=== PATIENT | female | born 2000 | race Caucasian/White ===

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

== ENCOUNTER 2019-12-03 08:28 | Emergency (ER) | payer BC ==
[~2019-12-03] VITALS: Ht 167.6 cm; Wt 88.6 kg
[~2019-12-03 08:28] MED LIST changes: +ZYRTEC 10MG10 MG PO
[2019-12-03 08:35] VITALS: BP 125/79; TEMP 98.1
[2019-12-03 09:40] LABS: COLLECTION METHOD CLEAN CATCH
[2019-12-03 10:01] LABS: MUCOUS Present /lpf; PH 5 (5-8); URINE APPEARANCE Hazy; URINE BACTERIA None Seen /hpf; URINE BILIRUBIN Positive (NEGATIVE); URINE BLOOD Negative (NEGATIVE); URINE COLOR Amber; URINE GLUCOSE Negative (NEGATIVE); URINE KETONE 1+ (NEGATIVE); URINE LEUKOCYTE ESTERASE 1+ (NEGATIVE); URINE NITRATE Negative (NEGATIVE); URINE PROTEIN(semi-quant) 1+ (NEGATIVE); URINE UROBILINOGEN Negative (NEGATIVE)
[2019-12-03 10:12] LABS: BASO % 0.2 % (0.0-2.0); EOS % 0.4 % (0-4.0); GRAN # 6.4 (1.4-6.5); GRAN % 69.6 % (42.2-75.2); HEMATOCRIT 46.6 % (35.0-45.0); HEMOGLOBIN 16.1 g/dl (12.0-15.0); LYMPH # 1.6 (1.2-3.4); LYMPH % 17.2 % (20.0-51.0); MEAN CELL VOLUME 87 fl (80.0-95.0); MEAN CORPUSCULAR HEMOGLOBIN 30 pg (26.0-32.0); MEAN CORPUSCULAR HGB CONC 35 g/dl (33.0-37.0); MONO # 1.2 (0.1-0.6); MONO % 12.5 % (1.7-9.3); PLATELET COUNT 263 K/mm3 (130-400); RED BLOOD COUNT 5.36 M/mm3 (4.10-5.30); REDCELL DISTRIBUTION WIDTH-CV 12.7 % (11.5-14.5)
[2019-12-03 10:14] LABS: ALBUMIN 4.7 gm/dL (3.5-5.0); BILIRUBIN,TOTAL 0.6 mg/dL (0.0-1.0); C-REACTIVE PROTEIN 2.2 mg/dL (0.0-0.9); CALCIUM 9.3 mg/dL (8.4-10.2); CREATININE, serum 0.66 (0.52-1.25); POTASSIUM 3.8 mmol/L (3.4-5.0); TOTAL PROTEIN 8.1 gm/dL (6.4-8.2)
[2019-12-03] MEDS ORDERED: TAMIFLU 75MG75 MG PO (11:35)
[2019-12-03 12:40] VITALS: PULSE 68
== END 2019-12-03 12:40 | disposition home or self-care (01) ==
LOC: COL.ER 08:28
PROVIDERS: Physician Assistant
DX: E86.0 Dehydration (principal); J11.1 Influenza due to unidentified influenza virus with other respiratory manifestations; R55 Syncope and collapse; J45.909 Unspecified asthma, uncomplicated; Z90.89 Acquired absence of other organs; Z90.49 Acquired absence of other specified parts of digestive tract; Z95.9 Presence of cardiac and vascular implant and graft, unspecified; Z87.74 Personal history of (corrected) congenital malformations of heart and circulatory system
CPT/HCPCS: J2405; J7030

== ENCOUNTER 2021-04-21 19:23 | Emergency (ER) | payer BC ==
[~2021-04-21] VITALS: Ht 170.2 cm; Wt 72.7 kg
[~2021-04-21 19:23] MED LIST changes: +FLEXERIL 1010 MG/TAB PO; +NORCO 325 MG-51 TAB PO; +TAMIFLU 75MG75 MG PO; +ZOFRAN ODT4 MG PO
[2021-04-21 20:05] LABS: BASO % 0.3 % (0.0-2.0); EOS # 0.1 (0.0-0.7); EOS % 1.4 % (0-4.0); GRAN # 6.6 (1.4-6.5); GRAN % 68.9 % (42.2-75.2); HEMATOCRIT 41.8 % (37.0-47.0); HEMOGLOBIN 14.3 g/dl (12.5-16.0); LYMPH % 20.8 % (20.0-51.0); MEAN CELL VOLUME 89 fl (80.0-100.0); MEAN CORPUSCULAR HEMOGLOBIN 31 pg (27.0-31.0); MEAN CORPUSCULAR HGB CONC 34 g/dl (33.0-37.0); MEAN PLATELET VOLUME 9.9 fl (7.4-10.4); MONO # 0.8 (0.1-0.6); MONO % 8.3 % (1.7-9.3); PLATELET COUNT 194 K/mm3 (130-400); RED BLOOD COUNT 4.68 M/mm3 (4.10-5.30); REDCELL DISTRIBUTION WIDTH-CV 12.4 % (11.5-14.5)
[2021-04-21 20:15] LABS: ALANINE AMINOTRANSFERASE 30 U/L (4-34); ALBUMIN 4.8 gm/dL (3.5-5.0); ALKALINE PHOSPHATASE 52 U/L (50-136); ANION GAP 10 mmol/L (7-16); AST,SGOT 37 U/L (15-37); BLOOD UREA NITROGEN 12 mg/dL (7-17); CALCIUM 9.2 mg/dL (8.4-10.2); CARBON DIOXIDE 19 mmol/L (22-30); CHLORIDE 109 mmol/L (98-107); CREATININE, serum 0.61 (0.52-1.25); GLUCOSE 96 mg/dL (74-106); LIPASE 50 U/L (23-300); POTASSIUM 3.5 mmol/L (3.4-5.0); SODIUM 139 mmol/L (137-145); TOTAL PROTEIN 8.2 gm/dL (6.4-8.2)
[2021-04-21 20:22] LABS: C-REACTIVE PROTEIN < 0.5 mg/dL (0.0-0.9)
[2021-04-21 20:32] LABS: COLLECTION METHOD CLEAN CATCH
[2021-04-21 20:42] LABS: MUCOUS Present /lpf; PH 5 (5-8); URINE APPEARANCE Hazy; URINE BACTERIA None Seen /hpf; URINE BILIRUBIN Negative (NEGATIVE); URINE BLOOD Negative (NEGATIVE); URINE COLOR Yellow; URINE GLUCOSE Negative (NEGATIVE); URINE KETONE 1+ (NEGATIVE); URINE LEUKOCYTE ESTERASE Negative (NEGATIVE); URINE NITRATE Negative (NEGATIVE); URINE PROTEIN(semi-quant) 1+ (NEGATIVE); URINE RBC 0-2 /hpf; URINE UROBILINOGEN Negative (NEGATIVE)
[2021-04-21] MEDS ORDERED: BENTYL 20MG20 MG/TAB PO (23:13)
[2021-04-22 00:15] VITALS: BP 133/82; PULSE 79; TEMP 98.5
[2021-04-22] MEDS ORDERED: NORCO 325 MG-51 TAB PO (22:50)
== END 2021-04-22 00:15 | disposition home or self-care (01) ==
LOC: COL.ER 19:23
PROVIDERS: Nurse Practitioner Primary Care
DX: R10.84 Generalized abdominal pain (principal); R11.2 Nausea with vomiting, unspecified; R19.7 Diarrhea, unspecified; J45.909 Unspecified asthma, uncomplicated
CPT/HCPCS: J1200; J1885; J2405; J2550

== ENCOUNTER 2021-04-22 18:47 | Emergency (ER) | payer BC ==
[~2021-04-22] VITALS: Ht 170.2 cm; Wt 70.5 kg
[~2021-04-22 18:47] MED LIST changes: +BENTYL 20MG20 MG/TAB PO
[2021-04-22 19:27] VITALS: TEMP 97.8
[2021-04-22 20:12] LABS: BASO % 0.4 % (0.0-2.0); EOS # 0.1 (0.0-0.7); EOS % 0.8 % (0-4.0); GRAN % 67.3 % (42.2-75.2); HEMATOCRIT 41.5 % (37.0-47.0); HEMOGLOBIN 14.4 g/dl (12.5-16.0); LYMPH # 2.3 (1.2-3.4); LYMPH % 22.4 % (20.0-51.0); MEAN CELL VOLUME 89 fl (80.0-100.0); MEAN CORPUSCULAR HEMOGLOBIN 31 pg (27.0-31.0); MEAN CORPUSCULAR HGB CONC 35 g/dl (33.0-37.0); MEAN PLATELET VOLUME 9.1 fl (7.4-10.4); MONO # 0.9 (0.1-0.6); MONO % 8.8 % (1.7-9.3); PLATELET COUNT 248 K/mm3 (130-400); RED BLOOD COUNT 4.65 M/mm3 (4.10-5.30); REDCELL DISTRIBUTION WIDTH-CV 12.3 % (11.5-14.5)
[2021-04-22 20:30] LABS: ALANINE AMINOTRANSFERASE 28 U/L (4-34); ALBUMIN 4.8 gm/dL (3.5-5.0); ALKALINE PHOSPHATASE 49 U/L (50-136); ANION GAP 10 mmol/L (7-16); AST,SGOT 33 U/L (15-37); BILIRUBIN,TOTAL 1.2 mg/dL (0.0-1.0); BLOOD UREA NITROGEN 10 mg/dL (7-17); CALCIUM 9.4 mg/dL (8.4-10.2); CARBON DIOXIDE 19 mmol/L (22-30); CHLORIDE 111 mmol/L (98-107); CREATININE, serum 0.59 (0.52-1.25); GLUCOSE 99 mg/dL (74-106); POTASSIUM 3.5 mmol/L (3.4-5.0); SODIUM 139 mmol/L (137-145); TOTAL PROTEIN 8.3 gm/dL (6.4-8.2)
[2021-04-22 20:36] LABS: C-REACTIVE PROTEIN < 0.5 mg/dL (0.0-0.9)
[2021-04-22] MEDS ORDERED: NORCO 325 MG-51 TAB PO (22:50)
[2021-04-22 23:14] VITALS: BP 121/68; PULSE 102
== END 2021-04-22 23:30 | disposition home or self-care (01) ==
LOC: COL.ER 18:47
PROVIDERS: Emergency Medicine
DX: R10.32 Left lower quadrant pain (principal); R19.7 Diarrhea, unspecified; R11.2 Nausea with vomiting, unspecified; Z90.49 Acquired absence of other specified parts of digestive tract
CPT/HCPCS: J2060; J2405; J2550; J3010; J7030; Q9967

== ENCOUNTER 2021-05-04 08:21 | Day surgery (SDC) | payer BC ==
[2021-05-04] VITALS (8 sets, daily range): BP systolic 111–133; BP diastolic 77–86; PULSE 59–99; TEMP 97.6–98.4
[~2021-05-04] VITALS: Ht 167.6 cm; Wt 66.2 kg
[2021-05-04] MEDS ORDERED: PRILOSEC 20MG20 MG PO (09:56)
--- NOTE | 2021-05-04 11:20 | NUR ---
PT RETURNED FROM ENDO PROCEDURE ROOM BY CART. PT IS NAUSEATED WITH GREEN EMESIS BAG CLOSE BY. MOM IS PRESENT IN ROOM WITH PATIENT. LUNGS CLEAR, HRR, BOWEL SOUNDS HYPOACTIVE. IVF CONT TO RUN TKO. WAS GIVEN A COLD WASH CLOTH FOR COMFORT WELL A WARM BLANKET. CALL IN REACH, WILL CONT TO MONITOR.
--- NOTE | 2021-05-04 16:14 | NUR ---
PT TOLERATING ICE AND A FEW SIPS OF WATER. CONTINUES TO C/O NAUSEA AND RATES IT AT A 5 ON A 0-10 SCALE. MOM AT BEDSIDE. PT STATES ABDOMEN FEELS FULL AND TIGHT. EXPLAINED THE FEELING IS RELATED TO THE PROCEDURE AND PASSING THE GAS OVER TIME WILL HELP. IVF CONT TO FLOW INTO LEFT HAND. CALL LIGHT IN REACH. WAYNE MCKINNEY PER DR MICHEL. WILL CALL PHARMACY.
--- NOTE | 2021-05-04 16:17 | NUR ---
PT UP TO THE BATHROOM, VOIDED AND HAD SOME LOOSE STOOL. PT CONTINUES TO BE NAUSEATED. IVF FINISHED AND DISCONNECTED. WILL CONT TO MONITOR PROGRESS.
--- NOTE | 2021-05-04 16:19 | NUR ---
ASSESSMENT COMPLETED AFTER PT HAD RETURNED FROM THE RESTROOM. GAIT SLOW AND STEADY. LUNGS CLEAR, DIMINISHED, HRR, BOWEL SOUNDS HYPOACTIVE. SKIN MOIST, PT CONTINUES TO FEEL NAUSEATED. REQUESTS ZOFRAN. WILL CONT TO MONITOR.
--- NOTE | 2021-05-04 16:23 | NUR ---
ONE TIME DOSE OF BENTYL WAS GIVEN PO PER DR MICHEL'S ORDER. 1 DOSE OF ZOFRAN 4MG IV WAS GIVEN PER VERBAL ORDER FOR NAUSEA. WILL CONT TO MONITOR. MOM AT BEDSIDE WITH PATIENT, CALL LIGHT IN REACH.
--- NOTE | 2021-05-04 16:25 | NUR ---
PT STATES FEELING BETTER AFTER THE MEDICATION AND IS READY TO GO HOME. IV DC'D TO LEFT HAND, PT TOLERATED WELL. DISMISSAL INSTRUCTIONS WERE SIGNED, QUESTIONS ANSWERED. PT WAS TAKEN TO PATIENT ENTRANCE PER WC TO FAMILY VEHICLE, MOM WAS DRIVING.
== END 2021-05-04 13:27 | disposition home or self-care (01) ==
LOC: SDCO 08:21
DX: K21.00 Gastro-esophageal reflux disease with esophagitis, without bleeding (principal); K29.70 Gastritis, unspecified, without bleeding; D12.2 Benign neoplasm of ascending colon; K63.89 Other specified diseases of intestine; R19.7 Diarrhea, unspecified; K59.00 Constipation, unspecified; I20.9 Angina pectoris, unspecified; J45.909 Unspecified asthma, uncomplicated; G89.29 Other chronic pain; G43.909 Migraine, unspecified, not intractable, without status migrainosus; F32.9 Major depressive disorder, single episode, unspecified; F41.9 Anxiety disorder, unspecified; Z79.82 Long term (current) use of aspirin; Z79.899 Other long term (current) drug therapy
CPT/HCPCS: J2405; J2704; J3010; J7120

== ENCOUNTER → 2021-06-16 | Outpatient (CLI) | payer BC ==
[~2021-06-16] MED LIST changes: +BENADRYL E2.5 MG/1 M PO; +KLONOPIN 0.5MG0.5 MG PO; +LUNESTA 1MG TAB1 MG PO; +PRILOSEC 20MG20 MG PO; +PRISTIQ100 MG PO; +RITALIN 20M20 MG/TAB PO; +TYLENOL 500MG500 MG PO; +VOLTAREN GEL 1%1 TU TP; +ZEBETA 5MG5 MG PO; +ZITHROMAX 250M250 MG PO
== END ==
LOC: COL.RAD 06:52
DX: R19.5 Other fecal abnormalities (principal); R11.2 Nausea with vomiting, unspecified; R10.84 Generalized abdominal pain

== ENCOUNTER → 2021-06-17 | Outpatient (CLI) | payer BC | LOC: COL.RAD 07:44 | DX: R19.5 Other fecal abnormalities (principal); R10.84 Generalized abdominal pain; R11.2 Nausea with vomiting, unspecified | CPT/HCPCS: A9541 ==

== ENCOUNTER → 2021-08-31 | Outpatient (CLI) | payer BC | LOC: COL.RAD 08:02 | DX: R11.2 Nausea with vomiting, unspecified (principal); Z90.89 Acquired absence of other organs | CPT/HCPCS: Q9967 ==

== ENCOUNTER 2021-09-03 17:51 | Emergency (ER) | payer BC ==
[~2021-09-03] VITALS: Ht 167.6 cm; Wt 68.2 kg
[~2021-09-03 17:51] MED LIST changes: -BENADRYL E2.5 MG/1 M PO; -KLONOPIN 0.5MG0.5 MG PO; -LUNESTA 1MG TAB1 MG PO; -PRISTIQ100 MG PO; -RITALIN 20M20 MG/TAB PO; -TYLENOL 500MG500 MG PO; -VOLTAREN GEL 1%1 TU TP; -ZEBETA 5MG5 MG PO; -ZITHROMAX 250M250 MG PO
[2021-09-03] MEDS ORDERED: FLEXERIL 1010 MG/TAB PO (20:29)
[2021-09-03 20:34] VITALS: BP 133/78; PULSE 79
== END 2021-09-03 20:34 | disposition home or self-care (01) ==
LOC: COL.ER 17:51
DX: G44.209 Tension-type headache, unspecified, not intractable (principal); M62.838 Other muscle spasm
CPT/HCPCS: J0780; J1200; J1885; J7030

== ENCOUNTER → 2021-09-23 | Outpatient (CLI) | payer BC ==
[~2021-09-23] MED LIST changes: +BENADRYL E2.5 MG/1 M PO; +KLONOPIN 0.5MG0.5 MG PO; +LUNESTA 1MG TAB1 MG PO; +PRISTIQ100 MG PO; +RITALIN 20M20 MG/TAB PO; +TYLENOL 500MG500 MG PO; +VOLTAREN GEL 1%1 TU TP; +ZEBETA 5MG5 MG PO; +ZITHROMAX 250M250 MG PO
== END ==
LOC: COL.RAD 13:31
DX: M54.2 Cervicalgia (principal)

== ENCOUNTER 2021-09-26 23:54 | Observation (INO) | payer BC ==
[~2021-09-26] VITALS: Ht 167.6 cm; Wt 61.5 kg
[~2021-09-26 23:54] MED LIST changes: -BENADRYL E2.5 MG/1 M PO; -KLONOPIN 0.5MG0.5 MG PO; -LUNESTA 1MG TAB1 MG PO; -PRISTIQ100 MG PO; -RITALIN 20M20 MG/TAB PO; -TYLENOL 500MG500 MG PO; -VOLTAREN GEL 1%1 TU TP; -ZEBETA 5MG5 MG PO; -ZITHROMAX 250M250 MG PO
[2021-09-27] VITALS (7 sets, daily range): BP systolic 95–116; BP diastolic 52–76; PULSE 74–104; TEMP 97.7–98.6
[2021-09-27 01:47] LABS: BASO % 0.4 % (0.0-2.0); EOS % 0.4 % (0-4.0); GRAN # 5.1 K/mm3 (1.4-6.5); GRAN % 64.2 % (42.2-75.2); HEMOGLOBIN 14.9 g/dl (12.5-16.0); LYMPH % 25.2 % (20.0-51.0); MEAN CELL VOLUME 85 fl (80.0-100.0); MEAN CORPUSCULAR HEMOGLOBIN 30 pg (27.0-31.0); MEAN CORPUSCULAR HGB CONC 36 g/dl (33.0-37.0); MONO # 0.8 K/mm3 (0.1-0.6); MONO % 9.4 % (1.7-9.3); PLATELET COUNT 277 K/mm3 (130-400); RED BLOOD COUNT 4.93 M/mm3 (4.10-5.30); REDCELL DISTRIBUTION WIDTH-CV 11.9 % (11.5-14.5)
[2021-09-27] MEDS ORDERED: PRISTIQ100 MG PO (01:50)
[2021-09-27] MEDS ORDERED: KLONOPIN 0.5MG0.5 MG PO (01:51)
[2021-09-27] MEDS ORDERED: LUNESTA 1MG TAB1 MG PO (01:52)
[2021-09-27] MEDS ORDERED: RITALIN 20M20 MG/TAB PO (01:53)
[2021-09-27 01:58] LABS: ALBUMIN 4.8 gm/dL (3.5-5.0); BILIRUBIN,TOTAL 1.3 mg/dL (0.2-1.2); CALCIUM 9.9 mg/dL (8.4-10.2); CREATININE, serum 0.71 mg/dL (0.57-1.11); POTASSIUM 3.3 mmol/L (3.5-4.5); TOTAL PROTEIN 7.6 gm/dL (6.2-8.1)
[2021-09-27] MEDS ORDERED: TYLENOL 500MG500 MG PO (02:58)
[2021-09-27] MEDS ORDERED: BENADRYL E2.5 MG/1 M PO (03:01)
--- NOTE | 2021-09-27 03:52 | NUR ---
Admitted to medical floor room 318 from ER with chest tightness, palpitations, on Tele SR, states having some nausea- requesting Zofran at this time-- given. NPO, will consult cardiology in the am.
--- NOTE | 2021-09-27 04:20 | NUR ---
Called to patients room, states she cant breathe, having obvious cramps in legs/contorted, hands with cramps, o2 sats 98%, Heart rate up to 150/min, chest tight/states palpitations, put on some o2 for comfort/ Carrie BEASLEY called and came to room, ordered 1 mg Ativan IV --
--- NOTE | 2021-09-27 04:30 | NUR ---
Ativan was given- symptoms are subsiding- taken off the o2, Up to bathroom with assist, Did let Carrie BEASLEY know that pt is NPO and she will put in new orders for Potassium protocol.
[2021-09-27 07:05] LABS: CALCIUM 9.9 mg/dL (8.4-10.2); CREATININE, serum 0.69 mg/dL (0.57-1.11); POTASSIUM 3.3 mmol/L (3.5-4.5)
[2021-09-27 09:00] LABS: COLLECTION METHOD CLEAN CATCH
[2021-09-27 09:06] LABS: MUCOUS Present /lpf; PH 6 (5-8); SQUAMOUS EPITHELIAL None Seen /hpf; URINE APPEARANCE Clear; URINE BACTERIA Rare /hpf; URINE BILIRUBIN Negative (NEGATIVE); URINE BLOOD Negative (NEGATIVE); URINE COLOR Yellow; URINE GLUCOSE Negative (NEGATIVE); URINE KETONE 2+ (NEGATIVE); URINE LEUKOCYTE ESTERASE Negative (NEGATIVE); URINE NITRATE Negative (NEGATIVE); URINE PROTEIN(semi-quant) Negative (NEGATIVE); URINE RBC 0-2 /hpf
--- NOTE | 2021-09-27 09:33 | NUR ---
DIVYA met with the patient to discuss discharge plan. The patient lives in [place] with a roommate. 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 She reports independence with ADLs and does not have any DME. The patient receives primary care and her medications from [facility]. She reports no difficulties obtaining her meds. The patient does not have a DPOA-HC, but she was interested in obtaining and completing a DPOA-HC while here. The patient is not and does not have any children. DIVYA informed her how her mother, Selena, would be her next of kin. The patient reports that she does not want her mother to make her decisions and plans on designating her older sister, Kriss Akbar (ph#[phone]). Kriss lives in [place]. The patient reports that she is dizzy right now and would like to complete the DPOA-HC later. The patient plans to return home with her roommate upon discharge. No additional needs at this time. *Discharge plan: home with roommate*
--- NOTE | 2021-09-27 10:00 | NUR ---
Initial visit; Patient thanked Audit Manager for stopping by though declined spiritual care.
--- NOTE | 2021-09-27 11:18 | NUR ---
PT IN BED, EXPERIENCING MULTIPLE EPISODE OF CHEST PAIN, MUSCLE SPASMS, SOB, AND TACHYPNEA. HEART RATE ELEVATED DURING THESE EPISODE, ALL OTHER VITALS STABLE. MORNING MEDICATIONS GIVEN. SHIFT ASSESSMENT COMPLETED. LISANDRO MOYA NOTIFIED OF THESE EPISODES. WILL CONTINUE TO MONITOR.
--- NOTE | 2021-09-27 16:30 | NUR ---
PT EXPERIENCING CHEST PAIN AT THIS TIME. HEART RATE IS SUSTAINED IN THE 150s. SHE REPORTS A NUMBNESS IN HER FEET AND HANDS. SHE STATES HER STOMACH HURTS AND SHE FEELS SICK. IS TACHYPNEIC AND REPORTS BEING SOB, O2 SATURATION IS 100%. SHE NOW STATES HER FEET ARE STARTING TO BURN AND HER HANDS ARE FREEZING COLD. SHE HAS THE COLD SWEATS ALL OVER. HER LIPS "FEEL TIGHT." PT CHEST PAIN IS BECOMING WORSE AND SHE IS TREMBLING. HEART RATE IN THE 140s. REPORTS HER CHEST FEELS VERY TIGHT. LEFT HAND WAS FLEXED IN A BALL AND PT UNABLE TO RELAX IT. PT HANDS ARE DIAPHORETIC. HEART RATE WAS SUSTAINED ABOVE 130s FOR AT LEAST 10 MINUTES.
--- NOTE | 2021-09-27 16:47 | NUR ---
PT GIVEN 1MG OF ADIVAN. REPORTS INVOLUNTARY ARM CONTRACTIONS AND L LEG NUMBNESS. FACE NUMBNESS.
--- NOTE | 2021-09-27 16:53 | NUR ---
CHEST PAIN FOR THIS EPISODE STARTED AROUNG 1630 AND HAS NOT LET UP.
--- NOTE | 2021-09-27 17:12 | NUR ---
PT HAS UNCONTROLLABLE SHAKING AND HER WHOLE BODY IS TENSING UP.
[2021-09-28] VITALS (7 sets, daily range): BP systolic 97–116; BP diastolic 52–72; PULSE 54–93; TEMP 97.8–99
--- NOTE | 2021-09-28 06:05 | NUR ---
Patient has had an uneventful night. No episodes of muscle spasming or elevated HR was noted. Patient was dosed with ativan once when she stated her symptoms felt as if they were starting; verified with RAMOS Butler that it was okay to premedicate and prevent the spasming. This worked. Patient has otherwise slept throughout the night with no complaints.
[2021-09-28 07:00] LABS: CALCIUM 9.6 mg/dL (8.4-10.2); CREATININE, serum 0.81 mg/dL (0.57-1.11); MAGNESIUM 2.1 mg/dL (1.6-2.6); POTASSIUM 4.7 mmol/L (3.5-4.5)
--- NOTE | 2021-09-28 08:00 | NUR ---
pt returned from mri, latosha from mri reporting "pt was feeling dizzy and saying she couldn't feel her feet". went to assess pt, pt saying "i can't feel my feet" pt started becoming tachypnic, pt c/o chest pain, vitals obtained, ativan given, assessment performed, physician notified, no new orders at this time. after reassessment of ativan pt claims she feels a lot better and was willing to do the MRI again.
[2021-09-28 08:49] LABS: HEMATOCRIT 41.7 % (37.0-47.0); HEMOGLOBIN 14.3 g/dl (12.5-16.0); MEAN CORPUSCULAR HEMOGLOBIN 31 pg (27.0-31.0); MEAN CORPUSCULAR HGB CONC 34 g/dl (33.0-37.0); MEAN PLATELET VOLUME 10.3 fl (7.4-10.4); PLATELET COUNT 265 K/mm3 (130-400); RED BLOOD COUNT 4.66 M/mm3 (4.10-5.30); REDCELL DISTRIBUTION WIDTH-CV 12.2 % (11.5-14.5)
[2021-09-28 08:51] LABS: MEAN CELL VOLUME 90 fl (80.0-100.0)
--- NOTE | 2021-09-28 13:16 | NUR ---
Visit from the activities counselor. No needs right now.
--- NOTE | 2021-09-28 19:50 | NUR ---
Assessment complete. Patient has no complaints of chest pain, nausea, palpitations or SOA at this time. Visitor at bedside and her dinner has just been delivered. Vital signs stable. Tylenol provided per pt request for sore throat and headache. Call light in reach.
[2021-09-29 05:13] VITALS: BP 109/55; PULSE 62; TEMP 97.5
--- NOTE | 2021-09-29 05:39 | NUR ---
Patient had one episode of SOA, chest pain/teeth pain and nausea overnight; Ativan and zofran were administered. Vital signs remained stable throughout this episode and HR remained in the 70's. No involuntary or seizure-like movements were noted. This lasted approx 10 minutes and then patient was able to fall back asleep and has not woken up since.
[2021-09-29 07:54] VITALS: BP 92/54; PULSE 57; TEMP 97.2
[2021-09-29 07:59] LABS: CALCIUM 9.5 mg/dL (8.4-10.2); CREATININE, serum 0.8 mg/dL (0.57-1.11); MAGNESIUM 1.9 mg/dL (1.6-2.6); POTASSIUM 4.4 mmol/L (3.5-4.5)
[2021-09-29] MEDS ORDERED: ZEBETA 5MG5 MG PO (09:52)
--- NOTE | 2021-09-29 10:58 | NUR ---
ASSESSMENT COMPLETED. PT COOPERATIVE WITH CARES. PT COMPLAINED OF SORE THROAT. TYLENOL GIVEN, SORE THROAT RESOLVING PER PT. PT ASKED FOR AND GIVEN MEDICATION LIST. PT DENIES ALL OTHER PAIN, PALPITATIONS OR DIZZINESS. PT HAS NO OTHER NEEDS AT THIS TIME. CALL LIGHT IS WITHIN REACH.
[2021-09-29 11:42] VITALS: BP 97/42; PULSE 60; TEMP 98.8
[2021-09-29] MEDS ORDERED: ZOFRAN ODT4 MG PO (11:59)
--- NOTE | 2021-09-29 13:00 | NUR ---
DISCHARGE PAPERWORK AND INSTRUCTIONS REVIEWED WITH PT. I ANSWERED ALL QUESTIONS ASKED BY PT. IV TO LEFT FOREARM DISCONTINUED. CATHETER TIP INTACT. I WALKED PT OUT OF FACILTY.
== END 2021-09-29 13:00 | disposition home or self-care (01) ==
LOC: COL.ER 23:54 → MEDICAL 09-27 01:31
PROVIDERS: Internal Medicine; Student in an Organized Health Care Education/Training Program; ADMIT Internal Medicine
DX: R07.9 Chest pain, unspecified (principal); K21.9 Gastro-esophageal reflux disease without esophagitis; F32.9 Major depressive disorder, single episode, unspecified; F41.9 Anxiety disorder, unspecified; F90.9 Attention-deficit hyperactivity disorder, unspecified type; G47.00 Insomnia, unspecified; K58.9 Irritable bowel syndrome, unspecified
CPT/HCPCS: A9585; G0378; J1650; J2060; J2405; J3475; J3480

== ENCOUNTER 2021-09-30 18:13 | Emergency (ER) | payer BC ==
[~2021-09-30] VITALS: Ht 167.6 cm; Wt 63.6 kg
[~2021-09-30 18:13] MED LIST changes: +BENADRYL E2.5 MG/1 M PO; +KLONOPIN 0.5MG0.5 MG PO; +LUNESTA 1MG TAB1 MG PO; +PRISTIQ100 MG PO; +RITALIN 20M20 MG/TAB PO; +TYLENOL 500MG500 MG PO; +ZEBETA 5MG5 MG PO
[2021-09-30 22:09] LABS: COLLECTION METHOD CLEAN CATCH
[2021-09-30 22:46] LABS: MUCOUS Present /lpf; PH 5 (5-8); SQUAMOUS EPITHELIAL 0-2 /hpf; URINE APPEARANCE Hazy; URINE BACTERIA Rare /hpf; URINE BILIRUBIN Negative (NEGATIVE); URINE BLOOD Negative (NEGATIVE); URINE COLOR Yellow; URINE GLUCOSE Negative (NEGATIVE); URINE KETONE 2+ (NEGATIVE); URINE LEUKOCYTE ESTERASE Negative (NEGATIVE); URINE NITRATE Negative (NEGATIVE); URINE PROTEIN(semi-quant) 1+ (NEGATIVE); URINE RBC None Seen /hpf
[2021-09-30 22:58] LABS: BASO % 0.4 % (0.0-2.0); EOS % 0.3 % (0-4.0); GRAN # 6.2 K/mm3 (1.4-6.5); GRAN % 68.6 % (42.2-75.2); HEMATOCRIT 41.9 % (37.0-47.0); HEMOGLOBIN 14.8 g/dl (12.5-16.0); LYMPH # 2.1 K/mm3 (1.2-3.4); LYMPH % 23.5 % (20.0-51.0); MEAN CORPUSCULAR HEMOGLOBIN 30 pg (27.0-31.0); MEAN CORPUSCULAR HGB CONC 35 g/dl (33.0-37.0); MEAN PLATELET VOLUME 9.9 fl (7.4-10.4); MONO # 0.6 K/mm3 (0.1-0.6); MONO % 6.9 % (1.7-9.3); PLATELET COUNT 273 K/mm3 (130-400); RED BLOOD COUNT 4.91 M/mm3 (4.10-5.30); REDCELL DISTRIBUTION WIDTH-CV 11.9 % (11.5-14.5)
[2021-09-30 22:59] LABS: MEAN CELL VOLUME 85 fl (80.0-100.0)
[2021-09-30 23:15] LABS: ALBUMIN 4.8 gm/dL (3.5-5.0); BILIRUBIN,TOTAL 0.7 mg/dL (0.2-1.2); CALCIUM 9.9 mg/dL (8.4-10.2); CREATININE, serum 0.73 mg/dL (0.57-1.11); TOTAL PROTEIN 7.9 gm/dL (6.2-8.1)
[2021-10-01] MEDS ORDERED: ZOFRAN ODT4 MG PO (02:47)
[2021-10-01 03:40] VITALS: BP 127/78; PULSE 67; TEMP 98
[2021-10-02] MEDS ORDERED: VOLTAREN GEL 1%1 TU TP (03:32)
[2021-10-02] MEDS ORDERED: ZITHROMAX 250M250 MG PO (10:10)
== END 2021-10-01 03:40 | disposition home or self-care (01) ==
LOC: COL.ER 18:13
PROVIDERS: Emergency Medicine
DX: R19.5 Other fecal abnormalities (principal); K59.00 Constipation, unspecified; K21.9 Gastro-esophageal reflux disease without esophagitis; F32.A Depression, unspecified; F41.9 Anxiety disorder, unspecified; Z79.899 Other long term (current) drug therapy
CPT/HCPCS: J2060; J2405; J7030; Q9967

== ENCOUNTER 2021-10-01 22:57 | Observation (INO) | payer BC ==
[~2021-10-01] VITALS: Ht 15.2 cm; Wt 73.3 kg
[2021-10-01 23:50] LABS: BASO # 0.1 K/mm3 (0.0-0.2); BASO % 0.6 % (0.0-2.0); EOS # 0.1 K/mm3 (0.0-0.7); EOS % 0.7 % (0-4.0); GRAN % 66.5 % (42.2-75.2); HEMATOCRIT 40.5 % (37.0-47.0); HEMOGLOBIN 14.5 g/dl (12.5-16.0); LYMPH % 22.6 % (20.0-51.0); MEAN CELL VOLUME 85 fl (80.0-100.0); MEAN CORPUSCULAR HEMOGLOBIN 31 pg (27.0-31.0); MEAN CORPUSCULAR HGB CONC 36 g/dl (33.0-37.0); MEAN PLATELET VOLUME 10.3 fl (7.4-10.4); MONO # 0.8 K/mm3 (0.1-0.6); MONO % 9.4 % (1.7-9.3); PLATELET COUNT 271 K/mm3 (130-400); RED BLOOD COUNT 4.76 M/mm3 (4.10-5.30)
[2021-10-02 01:53] LABS: ALBUMIN 4.8 gm/dL (3.5-5.0); C-REACTIVE PROTEIN 0.33 mg/dL (0.00-0.50); CALCIUM 10.2 mg/dL (8.4-10.2); CREATININE, serum 0.79 mg/dL (0.57-1.11); POTASSIUM 3.6 mmol/L (3.5-4.5); TOTAL PROTEIN 7.3 gm/dL (6.2-8.1)
[2021-10-02 02:38] LABS: COLLECTION METHOD CLEAN CATCH
[2021-10-02 02:49] LABS: MUCOUS Present /lpf; PH 7 (5-8); URINE APPEARANCE Hazy; URINE BACTERIA None Seen /hpf; URINE BILIRUBIN Negative (NEGATIVE); URINE BLOOD 1+ (NEGATIVE); URINE COLOR Amber; URINE GLUCOSE Negative (NEGATIVE); URINE KETONE 2+ (NEGATIVE); URINE LEUKOCYTE ESTERASE Trace (NEGATIVE); URINE NITRATE Negative (NEGATIVE); URINE PROTEIN(semi-quant) 1+ (NEGATIVE); URINE RBC 0-2 /hpf; URINE UROBILINOGEN >=4.0 mg/dL (NEGATIVE)
[2021-10-02 03:00] VITALS: BP 103/72; PULSE 45; PULSE 52; TEMP 98
[2021-10-02] MEDS ORDERED: VOLTAREN GEL 1%1 TU TP (03:32)
--- NOTE | 2021-10-02 05:02 | NUR ---
Patient care, medication administration and nursing documentation occurred during a Daylight Savings Time Change.
--- NOTE | 2021-10-02 05:03 | NUR ---
PT ADMITTED TO ROOM 319 PER CART FROM ED, PT ABLE TO AMBULATE FROM CART TO BED WITHOUT DIFFICULTY. IV IN RAC, IVF INFUSING @125CC/HR, CURRENTLY NO N/V/D OR ABDOMINAL PAIN REPORTED. REPORTS DISCOMFORT IN NECK, STATES THIS IS FROM A PREVIOUS INJURY. ASKING FOR DICLOFENAC OINTMENT, USES THIS AT HOME, ADDED TO HOME MED LIST. CALL PLACED TO JIMBO Cleveland APRN, FOR AN ORDER BUT SHE IS CURRENTLY UNAVAILABLE. COLLECTION HAT PLACED IN TOILET TO OBTAIN STOOL SPECIMEN.
[2021-10-02 08:19] VITALS: BP 101/52; PULSE 67; TEMP 98.3
[2021-10-02] MEDS ORDERED: ZITHROMAX 250M250 MG PO (10:10)
--- NOTE | 2021-10-02 10:47 | NUR ---
Plan is to return home to [facility] room at [facility]. Patient reports that she has a roommate but the roommate is not there at this Time. Patient reports that she is fairly independent but does have an atrial septic defect that she was told it closed. Patient reports that she does have tightness in her chest and is in pain a 4 out of ten. Patient shares that her mother is her EMR contact or nani Jean . Patient reports that she can not go home for supports because it is a toxic environment. Patient reports that she sees Melissa for primary care and obtains her medications there, alternate to medications is [facility]. Patient reports that she is able to get herself around. SW educated on [employer] [facility] and services with case management. HANNA.
--- NOTE | 2021-10-02 11:36 | NUR ---
Patient alert and oriented, answers questions appropriately. See assessment. C/o intermittent abdominal pain, 02/02. States it comes and goes. States Morphine controls her pain best. Patient also c/o throat pain, stated Melissa initiated Zithromax for her on Sunday for a diagnosis of sinus infection. Voiding adequate amounts, c/o urinary burning, no frequency or hesitancy. No other c/o at this time.
[2021-10-02 11:38] VITALS: BP 92/59; PULSE 55; TEMP 98
[2021-10-02 16:48] VITALS: BP 93/48; PULSE 58; TEMP 98.3
[2021-10-03 01:43] VITALS: BP 102/47; PULSE 43; TEMP 98.3
[2021-10-03 04:27] VITALS: BP 99/57; PULSE 41; TEMP 97.3
[2021-10-03 07:16] LABS: CALCIUM 8.4 mg/dL (8.4-10.2); CREATININE, serum 0.64 mg/dL (0.57-1.11); POTASSIUM 3.7 mmol/L (3.5-4.5)
[2021-10-03 08:06] VITALS: BP 102/66; PULSE 45; TEMP 97.7
[2021-10-03] MEDS ORDERED: ZOFRAN ODT4 MG PO (09:27)
--- NOTE | 2021-10-03 09:33 | NUR ---
PT RESTING IN BED. MORNING MEDICATIONS GIVEN. SHIFT ASSESSMENT COMPLETED. REPORTS MINIMAL ABDOMINAL PAIN. TOLERATING FLUIDS AND FOOD. PREPARING FOR DISCHARGE.
== END 2021-10-03 11:49 | disposition home or self-care (01) ==
LOC: COL.ER 22:57 → MEDICAL 10-02 01:05
PROVIDERS: Emergency Medicine; Nurse Practitioner Family; ADMIT Internal Medicine
DX: A04.0 Enteropathogenic Escherichia coli infection (principal); K58.9 Irritable bowel syndrome, unspecified; K21.9 Gastro-esophageal reflux disease without esophagitis; J32.9 Chronic sinusitis, unspecified; I47.9 Paroxysmal tachycardia, unspecified; G47.00 Insomnia, unspecified; F90.9 Attention-deficit hyperactivity disorder, unspecified type; F32.9 Major depressive disorder, single episode, unspecified; F41.9 Anxiety disorder, unspecified; Z87.74 Personal history of (corrected) congenital malformations of heart and circulatory system; Z79.899 Other long term (current) drug therapy
CPT/HCPCS: 99222-AI; G0008; G0378; J1335; J2270; J2405; J2550; J7030

== ENCOUNTER → 2022-02-21 | Outpatient (CLI) | payer BC ==
[~2022-02-21] MED LIST changes: +VOLTAREN GEL 1%1 TU TP; +ZITHROMAX 250M250 MG PO
== END ==
LOC: COL.RAD 09:00
DX: R07.89 Other chest pain (principal); R13.10 Dysphagia, unspecified; R09.89 Other specified symptoms and signs involving the circulatory and respiratory systems

== ENCOUNTER 2022-03-07 08:08 | Outpatient (CLI) | payer BC ==
[~2022-03-07] VITALS: Ht 167.6 cm; Wt 65.8 kg
[~2022-03-07 08:08] MED LIST changes: +TYLENOL 325MG325 MG PO; -TYLENOL 500MG500 MG PO
[2022-03-07 08:46] VITALS: BP 129/86; PULSE 74; TEMP 98.5
[2022-03-07] MEDS ORDERED: PROAMATINE 5MG T5 MG PO (09:19)
[2022-03-07] MEDS ORDERED: [UNRECOGNIZED DRUG - OTHER] PO (09:24)
[2022-03-07] MEDS ORDERED: ZOFRAN 4MG T4 MG/TAB PO (09:25)
[2022-03-07] MEDS ORDERED: CONCERTA36 MG PO (09:29)
[2022-03-07] MEDS ORDERED: RITALIN10 MG PO (09:30)
[2022-03-07] MEDS ORDERED: VITAMIN B125000 MCG PO (09:31)
[2022-03-07] MEDS ORDERED: VITAMIND3 5000 PO (09:31)
[2022-03-07] MEDS ORDERED: NEXIUM 20MG20 MG PO (09:32)
[2022-03-07] MEDS ORDERED: VITAMIN C500 MG PO (09:32)
[2022-03-07] MEDS ORDERED: VISTARIL 2525 MG/CAP PO (09:33)
[2022-03-07] MEDS ORDERED: KLONOPIN 0.5MG0.5 MG PO (09:34)
[2022-03-07] MEDS ORDERED: ATIVAN 0.50.5 MG/TAB PO (09:34)
[2022-03-07] MEDS ORDERED: [UNRECOGNIZED DRUG - OTHER] PO (09:35)
[2022-03-07] MEDS ORDERED: IB GUARD PO (09:36)
[2022-03-07] MEDS ORDERED: LUNESTA 1MG TAB1 MG PO (09:39)
--- NOTE | 2022-03-07 10:51 | NUR ---
Pt returned from procedure,report from Allyson Salinas.
[2022-03-07 10:52] VITALS: BP 129/83; PULSE 91
--- NOTE | 2022-03-07 12:33 | NUR ---
Discharge instructions given to pt.Pt verbalizes understanding.INT removed,catheter tip intact.pt escorted out by this nurse.
== END 2022-03-07 12:33 ==
LOC: COL.CAR 08:08
DX: R42 Dizziness and giddiness (principal); R00.2 Palpitations; R55 Syncope and collapse; R06.02 Shortness of breath; Q21.1 Atrial septal defect; R93.1 Abnormal findings on diagnostic imaging of heart and coronary circulation; R00.0 Tachycardia, unspecified; F90.9 Attention-deficit hyperactivity disorder, unspecified type; Z79.899 Other long term (current) drug therapy; Z98.890 Other specified postprocedural states

== ENCOUNTER 2022-08-18 22:30 | Emergency (ER) | payer BC ==
[~2022-08-18] VITALS: Ht 170.2 cm; Wt 61.4 kg
[~2022-08-18 22:30] MED LIST changes: +ATIVAN 0.50.5 MG/TAB PO; +CONCERTA36 MG PO; +IB GUARD PO; +NEXIUM 20MG20 MG PO; +PROAMATINE 5MG T5 MG PO; +RITALIN10 MG PO; +VISTARIL 2525 MG/CAP PO; +VITAMIN B125000 MCG PO; +VITAMIN C500 MG PO; +VITAMIND3 5000 PO; +ZOFRAN 4MG T4 MG/TAB PO; +[UNRECOGNIZED DRUG - OTHER] PO; +[UNRECOGNIZED DRUG - OTHER] PO
[2022-08-18 22:36] VITALS: BP 130/85; PULSE 85; TEMP 98.1
[2022-08-18] MEDS ORDERED: CRUTCHES MC ×3 (22:59→23:27)
== END 2022-08-18 23:25 | disposition home or self-care (01) ==
LOC: COL.ER 22:30
DX: S79.922A Unspecified injury of left thigh, initial encounter (principal); W18.40XA Slipping, tripping and stumbling without falling, unspecified, initial encounter; X50.1XXA Overexertion from prolonged static or awkward postures, initial encounter; Y93.K1 Activity, walking an animal
CPT/HCPCS: L1830; L1846

== ENCOUNTER 2022-09-19 11:22 | Emergency (ER) | payer BC ==
[~2022-09-19] VITALS: Ht 170.2 cm; Wt 63.6 kg
[~2022-09-19 11:22] MED LIST changes: +CRUTCHES MC
[2022-09-19 11:29] VITALS: TEMP 97
[2022-09-19] MEDS ORDERED: ZOFRAN ODT4 MG PO (13:34)
[2022-09-19] MEDS ORDERED: FIORICET 325 MG1 TA1 PO (14:25)
[2022-09-19 14:32] VITALS: BP 126/75; PULSE 80
== END 2022-09-19 14:32 | disposition home or self-care (01) ==
LOC: COL.ER 11:22
PROVIDERS: Physician Assistant
DX: G43.809 Other migraine, not intractable, without status migrainosus (principal)
CPT/HCPCS: J1200; J1885; J2550; J7030